=== PATIENT | male | born 1970 | race Caucasian/White ===

== ENCOUNTER 2016-12-10 19:10 | Emergency (ER) | payer OTHER ==
[~2016-12-10] VITALS: Ht 180.3 cm; Wt 104.0 kg
[~2016-12-10 19:10] MED LIST: AMBI10TA PO; AMLO10 PO; APIX5TAB PO; Aspirin Ec PO; HYDR-3115 PO; LABE200T2 PO; LIPI40TA PO
[2016-12-10 20:05] VITALS: BP 142/87; PULSE 120; RESP 16; TEMP 98.7; O2SAT 95
--- NOTE | 2016-12-10 20:39 | PD ---
HPI Chief Complaint: Psychiatric Symptoms Time Seen by Provider: 20:28 Travel History International Travel<30 days: No Contact w/Intl Traveler<30days: No Traveled to known affect area: No History of Present Illness HPI 46-year-old male that presents to the ED for evaluation of psychiatric illness. Patient was Benavides acted by police after apparently made suicidal statements to the police. Per patient she's been feeling depressed and anxious and his been abusing alcohol. Per patient he has a history of alcoholism and has been battling with this for some time. Per patient he has been sober in the past and was actually sober for about 30 days before he relapsed again about a week ago. He denies any chest pain or shortness of breath. No fevers chills or sweats. History of CVA but takes no blood thinners. Per patient he only takes an appropriate. He has been antidepressives in the past. He has not been on anything recently. He denies any homicidal ideation. Per patient he has no plan. Per patient he is wants help with his alcohol as well as his suicidal ideation. He states that he has a lot of stresses at home that exacerbate his symptoms and they've been progressively getting worse for the past couple weeks which caused him to go back to his alcohol. PFSH Past Medical History Arthritis: No Asthma: No Atrial Fibrillation: Yes Autoimmune Disease: No Blood Disorders: No Anxiety: Yes Depression: Yes Heart Rhythm Problems: No Cancer: No Cardiovascular Problems: Yes (AFIB) High Cholesterol: No Chemotherapy: No Chest Pain: No Congestive Heart Failure: No COPD: No Cerebrovascular Accident: No Diabetes: No Diminished Hearing: No Endocrine: No GERD: No Glaucoma: No Genitourinary: No Headaches: No Hepatitis: No Hiatal Hernia: No Hypertension: Yes Immune Disorder: No Kidney Stones: No Musculoskeletal: No Neurologic: No Psychiatric: Yes (alcoholism) Reproductive: No Respiratory: No Migraines: No Myocardial Infarction: No Radiation Therapy: No Renal Failure: No Seizures: No Sickle Cell Disease: No Sleep Apnea: No Thyroid Disease: No Ulcer: No Tetanus Vaccination: > 5 Years Influenza Vaccination: No Past Surgical History Abdominal Surgery: No AICD: No Appendectomy: No Arteriovenous Shunt: No Cardiac Surgery: No Cholecystectomy: No Ear Surgery: No Endocrine Surgery: No Eye Surgery: No Genitourinary Surgery: No Gynecologic Surgery: No Insulin Pump: No Joint Replacement: No Oral Surgery: No Pacemaker: No Thoracic Surgery: No Other Surgery: Yes (CYST REMOVAL) Social History Alcohol Use: Yes (5 BEERS PER DAYS) Tobacco Use: Yes (1 1/2 PACK PER DAY) Substance Use: No Allergies-Medications (Allergen,Severity, Reaction): Coded Allergies: *MDRO Multi-Drug Resistant Organism (Verified Adverse Reaction, Unknown, 12/10/16) MRSA PCR screen POSITIVE-03/02/16 Reported Meds & Prescriptions Reported Meds & Active Scripts Active Eliquis (Apixaban) 5 Mg Tab 5 Mg PO BID Labetalol (Labetalol HCl) 200 Mg Tab 200 Mg PO Q8HR Lipitor (Atorvastatin Calcium) 40 Mg Tab 40 Mg PO HS [Aspirin Ec] 325 MG Tabec 325 Mg PO DAILY Norvasc (Amlodipine Besylate) 10 Mg Tab 10 Mg PO DAILY Reported Vicodin Hp (Hydrocodone-Acetaminophen) 10-300 Tab 1 Tab PO Q4H PRN Ambien (Zolpidem Tartrate) 10 Mg Tab 10 Mg PO HS PRN Review of Systems Except as stated in HPI: all other systems reviewed are Neg Physical Exam Narrative GENERAL: SKIN: Warm and dry. HEAD: Atraumatic. Normocephalic. EYES: Pupils equal and round. No scleral icterus. No injection or drainage. ENT: No nasal bleeding or discharge. Mucous membranes pink and moist. Tongue is midline. No uvula deviation. NECK: Trachea midline. No JVD. CARDIOVASCULAR: Regular rate and rhythm. No murmurs, S3, S4. RESPIRATORY: No accessory muscle use. Clear to auscultation. Breath sounds equal bilaterally. GASTROINTESTINAL: Abdomen soft, non-tender, nondistended. Hepatic and splenic margins not palpable. MUSCULOSKELETAL: Extremities without clubbing, cyanosis, or edema. No obvious deformities. Full range of motion of the upper and lower extremities bilaterally. 2+ pulses bilaterally. NEUROLOGICAL: Awake and alert. No obvious cranial nerve deficits. Motor grossly within normal limits. Five out of 5 muscle strength in the arms and legs. Normal speech. PSYCHIATRIC: Appropriate mood and affect; insight and judgment normal. Data Data Last Documented VS Vital Signs Date Time Temp Pulse Resp B/P (MAP) Pulse Ox O2 Delivery O2 Flow Rate FiO2 12/10/16 20:07 16 12/10/16 20:05 98.7 120 142/87 (105) 95 Orders Orders Complete Blood Count With Diff (10/3/17 19:45) Comprehensive Metabolic Panel (12/10/16 19:45) Psych Screen (12/10/16 19:45) Drug Screen, Random Urine (12/10/16 19:45) Alcohol (Ethanol) (12/10/16 19:45) Salicylates (Aspirin) (12/10/16 19:45) Tylenol (Acetaminophen) (12/10/16 19:45) Electrocardiogram (12/10/16 ) Alcohol Withdrawal Asmt-Ciwa ONCE (12/10/16 21:59) Ondansetron Odt (Zofran Odt) (12/10/16 22:00) Acetaminophen (Tylenol) (12/10/16 22:00) Flumazenil Inj (Romazicon Inj) (12/10/16 22:00) Lorazepam (Ativan) (12/10/16 22:00) Lorazepam Inj (Ativan Inj) (12/10/16 22:00) Lorazepam (Ativan) (12/10/16 22:00) Lorazepam Inj (Ativan Inj) (12/10/16 22:00) Lorazepam Inj (Ativan Inj) (12/10/16 22:00) Lorazepam Inj (Ativan Inj) (12/10/16 22:00) Labs Laboratory Tests Test 12/10/16 20:40 White Blood Count 8.7 TH/MM3 Red Blood Count 4.82 MIL/MM3 Hemoglobin 16.1 GM/DL Hematocrit 47.5 % Mean Corpuscular Volume 98.7 FL Mean Corpuscular Hemoglobin 33.4 PG Mean Corpuscular Hemoglobin Concent 33.8 % Red Cell Distribution Width 15.1 % Platelet Count 180 TH/MM3 Mean Platelet Volume 7.2 FL Neutrophils (%) (Auto) 69.4 % Lymphocytes (%) (Auto) 23.0 % Monocytes (%) (Auto) 6.7 % Eosinophils (%) (Auto) 0.5 % Basophils (%) (Auto) 0.4 % Neutrophils # (Auto) 6.0 TH/MM3 Lymphocytes # (Auto) 2.0 TH/MM3 Monocytes # (Auto) 0.6 TH/MM3 Eosinophils # (Auto) 0.0 TH/MM3 Basophils # (Auto) 0.0 TH/MM3 CBC Comment DIFF FINAL Differential Comment Blood Urea Nitrogen 17 MG/DL Creatinine 1.06 MG/DL Random Glucose 68 MG/DL Total Protein 7.3 GM/DL Albumin 4.3 GM/DL Calcium Level 8.2 MG/DL Alkaline Phosphatase 80 U/L Aspartate Amino Transf (AST/SGOT) 39 U/L Alanine Aminotransferase (ALT/SGPT) 26 U/L Total Bilirubin 1.0 MG/DL Sodium Level 137 MEQ/L Potassium Level 3.4 MEQ/L Chloride Level 102 MEQ/L Carbon Dioxide Level 18.4 MEQ/L Anion Gap 17 MEQ/L Estimat Glomerular Filtration Rate 75 ML/MIN Salicylates Level 3.8 MG/DL Acetaminophen Level LESS THAN 2.0 MCG/ML Ethyl Alcohol Level 292 MG/DL [facility] Medical Decision Making Medical Screen Exam Complete: Yes Emergency Medical Condition: Yes Medical Record Reviewed: Yes Interpretation(s) CBC & BMP Diagram 12/10/16 20:40 Total Protein 7.3, Albumin 4.3, Calcium Level 8.2 L, Alkaline Phosphatase 80, Aspartate Amino Transf (AST/SGOT) 39 H, Alanine Aminotransferase (ALT/SGPT) 26, Total Bilirubin 1.0 tox positive for alcohol EKG shows sinus tachycardia. read by me and attending. Differential Diagnosis Depression versus suicidal ideation versus anxiety versus adjustment disorder versus mood disorder versus bipolar disorder versus schizophrenia versus paranoid disorder versus psychosis versus substance abuse versus alcohol abuse versus alcohol induced psychosis versus homicidality addition versus cutting versus personality disorder Narrative Course 46-year-old male that presents to the ED for violation of psychiatric illness. Patient was properly examined and was found to have no signs of acute medical distress. Patient does have a history of CVA but takes only lisinopril for blood pressure. Labs were drawn. Patient will be medically cleared. Okay to be seen by psych. Mental health screening was discussed with the patient. Diagnosis Primary Impression: Substance induced mood disorder Additional Impression: Alcohol abuse Cecilio Hernandes Dec 10, 2016 20:38
[2016-12-10 21:19] LABS: BASOPHIL % 0.4 % (0.0-2.0); EOSINOPHIL % 0.5 % (0.0-4.0); HEMATOCRIT 47.5 % (39.0-51.0); HEMO FLAGS DIFF FINAL; MEAN CELL VOLUME 98.7 FL (80.0-100.0); MEAN CORPUSCULAR HEMOGLOBIN 33.4 PG (27.0-34.0); MEAN CORPUSCULAR HGB CONC 33.8 % (32.0-36.0); MONO % 6.7 % (0.0-8.0); NEUT % 69.4 % (16.0-70.0); PLATELET COUNT 180 TH/MM3 (150-450); RED BLOOD COUNT 4.82 MIL/MM3 (4.50-5.90); RED CELL DISTRIBUTION WIDTH 15.1 % (11.6-17.2); WHITE BLOOD COUNT 8.7 TH/MM3 (4.0-11.0)
[2016-12-10 21:32] LABS: ANION GAP 17 MEQ/L (5-15)
[2016-12-10 21:52] LABS: ACETAMINOPHEN LESS THAN 2.0 MCG/ML (10.0-30.0); ALKALINE PHOSPHATASE 80 U/L (45-117); ALT (GPT) 26 U/L (12-78); AST (GOT) 39 U/L (15-37); BICARBONATE 18.4 MEQ/L (21.0-32.0); BLOOD UREA NITROGEN 17 MG/DL (7-18); CHLORIDE 102 MEQ/L (98-107); GLOMERULAR FILTRATION RATE 75 ML/MIN (>89); POTASSIUM 3.4 MEQ/L (3.5-5.1); SODIUM (NA) 137 MEQ/L (136-145)
[2016-12-10 21:54] LABS: ALCOHOL 292 MG/DL (0-5)
[2016-12-10] MEDS ORDERED: LORazepam 1 MG TAB PO PRN (22:00)
[2016-12-10] MEDS ORDERED: FLUMAZENIL 0.5 MG/5 ML VIAL IV PUSH PRN (22:00)
[2016-12-10] MEDS ORDERED: LORazepam 2 MG TAB PO PRN (22:00)
[2016-12-10] MEDS ORDERED: LORazepam 2 MG/ML VIAL IV PUSH PRN ×4 (22:00)
[2016-12-10] MEDS ORDERED: ONDANSETRON ODT 4 MG TAB PO PRN (22:00)
[2016-12-10] MEDS ORDERED: ACETAMINOPHEN 325 MG TAB PO PRN (22:00)
[2016-12-11 07:09] VITALS: BP 188/117; PULSE 104; RESP 16; TEMP 98.5; O2SAT 94
[2016-12-11] MEDS ORDERED: LORazepam 2 MG/ML VIAL IM ONE (07:30)
[2016-12-11] MEDS ORDERED: ONDANSETRON ODT 4 MG TAB PO ONE (07:30)
[2016-12-11 08:47] VITALS: BP 180/103; PULSE 108; RESP 17; O2SAT 94
--- NOTE | 2016-12-11 10:17 | EKG ---
Date Performed: 12/10/2016 Time Performed: 21:08:43 PTAGE: 46 years EKG: SINUS TACHYCARDIA PATTERN CONSISTENT WITH PULMONARY DISEASE INFERIOR MYOCARDIAL INFARCTION ABNORMAL ECG NO PREVIOUS TRACING DOCTOR: Keanu Waite Interpretating Date/Time 12/11/2016 10:15:51
[2016-12-11 15:05] VITALS: BP 162/102; PULSE 110; RESP 20; O2SAT 96
[2016-12-11] MEDS ORDERED: LORazepam 1 MG TAB PO ONE (17:15)
--- NOTE | 2016-12-11 17:21 | PD ---
History of Present Illness Chief Complaint: Psychiatric Symptoms Time Seen by Provider: 16:55 Travel History International Travel<30 Days: No Contact w/Intl Traveler<30days: No Known affected area: No Legal Status Legal Status: Benavides Act Benavides Act Signed By: [employer] [place] [employer] History of Present Illness: History of Present Illness 46-year-old male with no psychiatric history that presents to the ED under a Benavides act initiated by police. The Benavides act alleges that the patient told his mother that he wanted to and would not be alive by 6:00 pm. Patient was intoxicated when the police contacted him. He had 4 firearms in his possession but stated he would not use them. Patient did not make any attempts at harming self. Patient with BAl of 294 on arrival to ED. [place] [facility] he was allowed to sober up clinically in monitored environment with no behavioral concerns or suicidality reported by staff. The patient is alert, oriented, calm and clinically sober. he is seen with nurse Shavonne. He is not psychotic, not manic. States " I was drunk and said something to my brother. I have no intention of hurting myself". he denies any suicidal or homicidal ideation and states " I wouldn't do that to my mother". PFSH Past Medical History Arthritis: No Asthma: No Atrial Fibrillation: Yes Autoimmune Disease: No Blood Disorders: No Anxiety: Yes Depression: Yes Heart Rhythm Problems: No Cancer: No Cardiovascular Problems: Yes (AFIB) High Cholesterol: No Chemotherapy: No Chest Pain: No Congestive Heart Failure: No COPD: No Cerebrovascular Accident: No Diabetes: No Diminished Hearing: No Endocrine: No GERD: No Glaucoma: No Genitourinary: No Headaches: No Hepatitis: No Hiatal Hernia: No Hypertension: Yes Immune Disorder: No Kidney Stones: No Musculoskeletal: No Neurologic: No Psychiatric: Yes (alcoholism) Reproductive: No Respiratory: No Migraines: No Myocardial Infarction: No Radiation Therapy: No Renal Failure: No Seizures: No Sickle Cell Disease: No Sleep Apnea: No Thyroid Disease: No Ulcer: No Tetanus Vaccination: > 5 Years Influenza Vaccination: No Past Surgical History Abdominal Surgery: No AICD: No Appendectomy: No Arteriovenous Shunt: No Cardiac Surgery: No Cholecystectomy: No Ear Surgery: No Endocrine Surgery: No Eye Surgery: No Genitourinary Surgery: No Gynecologic Surgery: No Insulin Pump: No Joint Replacement: No Oral Surgery: No Pacemaker: No Thoracic Surgery: No Other Surgery: Yes (CYST REMOVAL) Psychiatric History Psychiatric History Hx Psychiatric Treatment: HX: DEPRESSION AND ANXIETY. Currently not tretaed History of Inpatient Treatment: No Guns or firearms in home: No Social History Single male. Lives with his mother. Moved to [place] 6 months ago. Unemployed. Hx Alcohol Use: Yes (5 BEERS PER DAYS) Hx Tobacco Use: Yes (1 1/2 PACK PER DAY) Hx Substance Use: Yes Substance Use Type: Alcohol Hx of Substance Use Treatment: Yes (Reports sober x 4 years. Relapsed 2 years ago and has been unable to maintian sobriety.) Family Psychiatric History Negative Allergies-Medications (Allergen,Severity, Reaction): Coded Allergies: *MDRO Multi-Drug Resistant Organism (Verified Adverse Reaction, Unknown, 12/10/16) MRSA PCR screen POSITIVE-03/02/16 Reported Meds & Prescriptions Reported Meds & Active Scripts Active Eliquis (Apixaban) 5 Mg Tab 5 Mg PO BID Labetalol (Labetalol HCl) 200 Mg Tab 200 Mg PO Q8HR Lipitor (Atorvastatin Calcium) 40 Mg Tab 40 Mg PO HS [Aspirin Ec] 325 MG Tabec 325 Mg PO DAILY Norvasc (Amlodipine Besylate) 10 Mg Tab 10 Mg PO DAILY Reported Vicodin Hp (Hydrocodone-Acetaminophen) 10-300 Tab 1 Tab PO Q4H PRN Ambien (Zolpidem Tartrate) 10 Mg Tab 10 Mg PO HS PRN Mental Status Examination Appearance: Appropriate Speech: Unremarkable Orientation: x3 Memory: Unremarkable Thought Content: Goal directed Thought Associations: Intact Language: Other (logical ) Fund of Knowledge: Average Hallucination Type: None Attention and Concentration: Good Suicidal Ideation: No Previous Suicide Attempts: No Homicidal Ideation: No Previous Homicide Attempts: No Insight: Adequate Judgment: Adequate Affect: Good Mood: Appropriate Motor Activity: Normal gait MDM Medical Decision Making Medical Record Reviewed: Yes Assessment/Plan 46-year-old male with no psychiatric history that presents to the ED under a Benavides act initiated by police. The Benavides act alleges that the patient told his mother that he wanted to and would not be alive by 6:00 pm. Patient was intoxicated when the police contacted him. He had 4 firearms in his possession but stated he would not use them. Patient did not make any attempts at harming self. Once clinically sober the patient denies any significant symptoms and does not present any objective signs of depression. He denies any suicidal ideation, intent or plan. He has adequate protective factors. B A is lifted as he does not present any unstable mental illness as per benavides act. Psychiatrically clear for discharge. He will begin 90 meetings in 90 days. Orders Orders Complete Blood Count With Diff (12/10/16 19:45) Comprehensive Metabolic Panel (12/10/16 19:45) Psych Screen (12/10/16 19:45) Drug Screen, Random Urine (12/10/16 19:45) Alcohol (Ethanol) (12/10/16 19:45) Salicylates (Aspirin) (12/10/16 19:45) Tylenol (Acetaminophen) (12/10/16 19:45) Electrocardiogram (12/10/16 ) Alcohol Withdrawal Asmt-Ciwa ONCE (12/10/16 21:59) Ondansetron Odt (Zofran Odt) (12/10/16 22:00) Acetaminophen (Tylenol) (12/10/16 22:00) Flumazenil Inj (Romazicon Inj) (12/10/16 22:00) Lorazepam (Ativan) (12/10/16 22:00) Lorazepam Inj (Ativan Inj) (12/10/16 22:00) Lorazepam (Ativan) (12/10/16 22:00) Lorazepam Inj (Ativan Inj) (12/10/16 22:00) Lorazepam Inj (Ativan Inj) (12/10/16 22:00) Lorazepam Inj (Ativan Inj) (12/10/16 22:00) Ondansetron Odt (Zofran Odt) (12/11/16 07:30) Lorazepam Inj (Ativan Inj) (12/11/16 07:30) Diet Regular Basic (12/11/16 Breakfast) Diet Regular Basic (12/11/16 Dinner) Lorazepam (Ativan) (12/11/16 17:15) Results Vital Signs Date Time Temp Pulse Resp B/P (MAP) Pulse Ox O2 Delivery O2 Flow Rate FiO2 12/11/16 15:05 110 20 162/102 (122) 96 Room Air 12/11/16 08:47 108 17 180/103 (128) 94 Room Air 12/11/16 07:09 98.5 104 16 188/117 (140) 94 Room Air 12/10/16 20:07 16 12/10/16 20:05 98.7 120 16 142/87 (105) 95 Laboratory Tests Test 12/10/16 20:40 12/10/16 21:50 White Blood Count 8.7 Red Blood Count 4.82 Hemoglobin 16.1 Hematocrit 47.5 Mean Corpuscular Volume 98.7 Mean Corpuscular Hemoglobin 33.4 Mean Corpuscular Hemoglobin Concent 33.8 Red Cell Distribution Width 15.1 Platelet Count 180 Mean Platelet Volume 7.2 Neutrophils (%) (Auto) 69.4 Lymphocytes (%) (Auto) 23.0 Monocytes (%) (Auto) 6.7 Eosinophils (%) (Auto) 0.5 Basophils (%) (Auto) 0.4 Neutrophils # (Auto) 6.0 Lymphocytes # (Auto) 2.0 Monocytes # (Auto) 0.6 Eosinophils # (Auto) 0.0 Basophils # (Auto) 0.0 CBC Comment DIFF FINAL Differential Comment Blood Urea Nitrogen 17 Creatinine 1.06 Random Glucose 68 Total Protein 7.3 Albumin 4.3 Calcium Level 8.2 Alkaline Phosphatase 80 Aspartate Amino Transf (AST/SGOT) 39 Alanine Aminotransferase (ALT/SGPT) 26 Total Bilirubin 1.0 Sodium Level 137 Potassium Level 3.4 Chloride Level 102 Carbon Dioxide Level 18.4 Anion Gap 17 Estimat Glomerular Filtration Rate 75 Salicylates Level 3.8 Acetaminophen Level LESS THAN 2.0 Ethyl Alcohol Level 292 Urine Opiates Screen NEG Urine Barbiturates Screen NEG Urine Amphetamines Screen NEG Urine Benzodiazepines Screen NEG Urine Cocaine Screen NEG Urine Cannabinoids Screen NEG Diagnosis Primary Impression: Alcohol dependence with acute alcoholic intoxication Psychiatrically Cleared: Yes Med/ Other Pt Specific Info: No Meds Exist/No RX given Disposition: 01 DISCHARGE HOME Condition: Stable Problem Qualifiers Primary Impression: Alcohol dependence with acute alcoholic intoxication Qualified Codes: F10.220 - Alcohol dependence with intoxication, uncomplicated Hattie Wei Purvi Soto [facility] Dec 11, 2016 17:21
--- NOTE | 2016-12-11 17:51 | PD ---
Physical Exam Time Seen by Provider: 17:49 PERRY Judge has evaluated the patient, lifted Benavides act, and the patient will be discharged home with follow-up at [facility]. Data Data Last Documented VS Vital Signs Date Time Temp Pulse Resp B/P (MAP) Pulse Ox O2 Delivery O2 Flow Rate FiO2 12/11/16 15:05 110 20 162/102 (122) 96 Room Air 12/11/16 07:09 98.5 Orders Orders Complete Blood Count With Diff (12/10/16 19:45) Comprehensive Metabolic Panel (12/10/16 19:45) Psych Screen (12/10/16 19:45) Drug Screen, Random Urine (12/10/16 19:45) Alcohol (Ethanol) (12/10/16 19:45) Salicylates (Aspirin) (12/10/16 19:45) Tylenol (Acetaminophen) (12/10/16 19:45) Electrocardiogram (12/10/16 ) Alcohol Withdrawal Asmt-Ciwa ONCE (12/10/16 21:59) Ondansetron Odt (Zofran Odt) (12/10/16 22:00) Acetaminophen (Tylenol) (12/10/16 22:00) Flumazenil Inj (Romazicon Inj) (12/10/16 22:00) Lorazepam (Ativan) (12/10/16 22:00) Lorazepam Inj (Ativan Inj) (12/10/16 22:00) Lorazepam (Ativan) (12/10/16 22:00) Lorazepam Inj (Ativan Inj) (12/10/16 22:00) Lorazepam Inj (Ativan Inj) (12/10/16 22:00) Lorazepam Inj (Ativan Inj) (12/10/16 22:00) Ondansetron Odt (Zofran Odt) (12/11/16 07:30) Lorazepam Inj (Ativan Inj) (12/11/16 07:30) Diet Regular Basic (12/11/16 Breakfast) Diet Regular Basic (12/11/16 Dinner) Lorazepam (Ativan) (12/11/16 17:15) Labs Laboratory Tests Test 12/10/16 20:40 12/10/16 21:50 White Blood Count 8.7 TH/MM3 Red Blood Count 4.82 MIL/MM3 Hemoglobin 16.1 GM/DL Hematocrit 47.5 % Mean Corpuscular Volume 98.7 FL Mean Corpuscular Hemoglobin 33.4 PG Mean Corpuscular Hemoglobin Concent 33.8 % Red Cell Distribution Width 15.1 % Platelet Count 180 TH/MM3 Mean Platelet Volume 7.2 FL Neutrophils (%) (Auto) 69.4 % Lymphocytes (%) (Auto) 23.0 % Monocytes (%) (Auto) 6.7 % Eosinophils (%) (Auto) 0.5 % Basophils (%) (Auto) 0.4 % Neutrophils # (Auto) 6.0 TH/MM3 Lymphocytes # (Auto) 2.0 TH/MM3 Monocytes # (Auto) 0.6 TH/MM3 Eosinophils # (Auto) 0.0 TH/MM3 Basophils # (Auto) 0.0 TH/MM3 CBC Comment DIFF FINAL Differential Comment Blood Urea Nitrogen 17 MG/DL Creatinine 1.06 MG/DL Random Glucose 68 MG/DL Total Protein 7.3 GM/DL Albumin 4.3 GM/DL Calcium Level 8.2 MG/DL Alkaline Phosphatase 80 U/L Aspartate Amino Transf (AST/SGOT) 39 U/L Alanine Aminotransferase (ALT/SGPT) 26 U/L Total Bilirubin 1.0 MG/DL Sodium Level 137 MEQ/L Potassium Level 3.4 MEQ/L Chloride Level 102 MEQ/L Carbon Dioxide Level 18.4 MEQ/L Anion Gap 17 MEQ/L Estimat Glomerular Filtration Rate 75 ML/MIN Salicylates Level 3.8 MG/DL Acetaminophen Level LESS THAN 2.0 MCG/ML Ethyl Alcohol Level 292 MG/DL Urine Opiates Screen NEG Urine Barbiturates Screen NEG Urine Amphetamines Screen NEG Urine Benzodiazepines Screen NEG Urine Cocaine Screen NEG Urine Cannabinoids Screen NEG MDM Supervised Visit with PATIENCE: No Narrative Course PERRY Kuhn has evaluated the patient, lifted Benavides act, and the patient will be discharged home with follow-up at [facility]. Patient contracts safety. Denies suicidal or homicidal ideations. Patient will be provided community resource packet to [facility] for follow-up. Has friends and family for support. Patient is medically cleared for discharge. Diagnosis Primary Impression: Alcohol dependence with acute alcoholic intoxication Qualified Codes: F10.220 - Alcohol dependence with intoxication, uncomplicated Referrals: [facility] (Out patient) [facility] Primary Care Physician Psychiatrist [facility] Patient Instructions: Abuse of Alcohol (ED), Alcohol Intoxication (ED), General Instructions Additional Instruction: Contract safety to your self and others Stop Drinking alcohol Follow-up with psychiatry Follow-up with primary care provider Follow-up with Ford Rae/[facility] Return to the emergency department immediately with worsening of symptoms Med/Other Pt SpecificInfo: No Meds Exist/No RX given Disposition: 01 DISCHARGE HOME Condition: Stable Yuridia Enciso [employer] Dec 11, 2016 17:51
[2016-12-11 17:58] VITALS: BP 154/90; TEMP 98.3
== END 2016-12-11 18:25 | disposition home or self-care (01) ==
LOC: NEPD 19:10 → NEPJ 12-11 18:25
DX: F10.220 Alcohol dependence with intoxication, uncomplicated (principal); F17.200 Nicotine dependence, unspecified, uncomplicated; I10 Essential (primary) hypertension; I48.91 Unspecified atrial fibrillation; Y90.8 Blood alcohol level of 240 mg/100 ml or more; Z79.01 Long term (current) use of anticoagulants; Z79.899 Other long term (current) drug therapy
CPT/HCPCS: 80053; 80307; 85025; 93005; 96372; 99284; J2060

== ENCOUNTER 2017-07-05 15:19 | Emergency (ER) | payer OTHER ==
[~2017-07-05] VITALS: Ht 180.3 cm; Wt 105.0 kg
[2017-07-05 15:27] VITALS: BP 175/109; PULSE 86; RESP 18; TEMP 98.6; O2SAT 98
[2017-07-05 15:32] VITALS: BP 159/109; PULSE 87; RESP 18; O2SAT 96
[2017-07-05 15:38] VITALS: O2SAT 98
--- NOTE | 2017-07-05 15:42 | PD ---
HPI Chief Complaint: Fall Time Seen by Provider: 15:32 Travel History International Travel<30 days: No Contact w/Intl Traveler<30days: No Traveled to known affect area: No History of Present Illness HPI 47-year-old male presents emergency department via [facility] after a fall that occurred at [facility] just prior to arrival. EVAC states that patient had a mechanical fall from one step landing on the concrete resulting in his injury. EVAC states that patient had repetitive questioning and did not remember the incident for approximately 30-45 minutes. Patient does remember the incident at this time. States that he fell resulting in this head injury. States he had multiple drinks while at [facility] which likely resulted in this fall. Patient is concerned because he was due home several hours ago. She denies any pain currently. He is rather emotional upon evaluation and reluctant to answer my questions. He has a history of paroxysmal atrial fibrillation and hypertension. Patient does not take any blood thinners. He says that he has relapsed with his alcohol consumption and is emotional when he explains the situation. Says he drinks "1/5 of alcohol" daily. He denies history of withdrawal. PFSH Past Medical History Arthritis: No Asthma: No Atrial Fibrillation: Yes Autoimmune Disease: No Blood Disorders: No Anxiety: Yes Depression: Yes Heart Rhythm Problems: No Cancer: No Cardiovascular Problems: Yes (AFIB) High Cholesterol: No Chemotherapy: No Chest Pain: No Congestive Heart Failure: No COPD: No Cerebrovascular Accident: No Diabetes: No Diminished Hearing: No Endocrine: No GERD: No Glaucoma: No Genitourinary: No Headaches: No Hepatitis: No Hiatal Hernia: No Hypertension: Yes Immune Disorder: No Kidney Stones: No Musculoskeletal: No Neurologic: No Psychiatric: Yes (alcoholism) Reproductive: No Respiratory: No Migraines: No Myocardial Infarction: No Radiation Therapy: No Renal Failure: No Seizures: No Sickle Cell Disease: No Sleep Apnea: No Thyroid Disease: No Ulcer: No ?: Not Past Surgical History Abdominal Surgery: No AICD: No Appendectomy: No Arteriovenous Shunt: No Cardiac Surgery: No Cholecystectomy: No Ear Surgery: No Endocrine Surgery: No Eye Surgery: No Genitourinary Surgery: No Gynecologic Surgery: No Insulin Pump: No Joint Replacement: No Oral Surgery: No Pacemaker: No Thoracic Surgery: No Other Surgery: Yes (CYST REMOVAL) Social History Alcohol Use: Yes (5 BEERS PER DAYS) Tobacco Use: Yes (1 1/2 PACK PER DAY) Substance Use: Yes Allergies-Medications (Allergen,Severity, Reaction): Coded Allergies: *MDRO Multi-Drug Resistant Organism (Verified Adverse Reaction, Unknown, ) 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 HEAD: Normocephalic. Laceration to the right forehead 4 cm EYES: Pupils equal and round. No scleral icterus. No injection or drainage. EOMI ENT: No nasal bleeding or discharge. Mucous membranes pink and moist. NECK: Trachea midline. No JVD. In c-collar CARDIOVASCULAR: Regular rate and rhythm. No murmur appreciated. RESPIRATORY: No accessory muscle use. Clear to auscultation. Breath sounds equal bilaterally. GASTROINTESTINAL: Abdomen soft, non-tender, nondistended. MUSCULOSKELETAL: No obvious deformities. No clubbing. No cyanosis. No edema. Pelvis stable BACK: No CVA tenderness. No rash. No point tenderness on palpation of the spine. NEUROLOGICAL: Awake and alert. No obvious cranial nerve deficits. Motor grossly within normal limits. Normal speech. PSYCHIATRIC: Appropriate mood and affect; insight and judgment normal. Data Data Last Documented VS Vital Signs Date Time Temp Pulse Resp B/P (MAP) Pulse Ox O2 Delivery O2 Flow Rate FiO2 07/05/17 18:07 100 07/05/17 15:38 Room Air 07/05/17 15:32 82 20 07/05/17 15:27 98.6 Orders Orders Complete Blood Count With Diff (07/05/17 15:33) Prothrombin Time / Inr (Pt) (07/05/17 15:33) Act Partial Throm Time (Ptt) (07/05/17 15:33) Ct Brain W/O Iv Contrast(Rout) (07/05/17 15:33) Ct Cerv Spine W/O Contrast (07/05/17 15:33) Ct Facial Bones W/O Iv Cont (07/05/17 15:33) Iv Access Insert/Monitor (07/05/17 15:33) Ecg Monitoring (07/05/17 15:33) Oximetry (07/05/17 15:33) Oxygen Administration (07/05/17 15:33) Remove Backboard (07/05/17 15:33) Sodium Chloride 0.9% Flush (Ns Flush) (07/05/17 15:45) Comprehensive Metabolic Panel (07/05/17 15:33) Lidocai-Epi 2%-1:100,000 Inj (Xylocaine- (07/05/17 15:45) Chest, Single Ap (07/05/17 ) Lidocai-Epi 2%-1:100,000 Inj (Xylocaine- (07/05/17 16:00) Wound Care (07/05/17 17:47) Ed Discharge Order (07/05/17 18:00) Labs Laboratory Tests Test 07/05/17 16:00 White Blood Count 9.3 TH/MM3 Red Blood Count 4.56 MIL/MM3 Hemoglobin 14.9 GM/DL Hematocrit 43.4 % Mean Corpuscular Volume 95.3 FL Mean Corpuscular Hemoglobin 32.6 PG Mean Corpuscular Hemoglobin Concent 34.3 % Red Cell Distribution Width 15.4 % Platelet Count 213 TH/MM3 Mean Platelet Volume 7.7 FL Neutrophils (%) (Auto) 55.2 % Lymphocytes (%) (Auto) 28.5 % Monocytes (%) (Auto) 13.8 % Eosinophils (%) (Auto) 1.5 % Basophils (%) (Auto) 1.0 % Neutrophils # (Auto) 5.1 TH/MM3 Lymphocytes # (Auto) 2.7 TH/MM3 Monocytes # (Auto) 1.3 TH/MM3 Eosinophils # (Auto) 0.1 TH/MM3 Basophils # (Auto) 0.1 TH/MM3 CBC Comment AUTO DIFF Differential Comment AUTO DIFF CONFIRMED Prothrombin Time 10.6 SEC Prothromb Time International Ratio 1.0 RATIO Activated Partial Thromboplast Time 24.1 SEC Blood Urea Nitrogen 12 MG/DL Creatinine 0.92 MG/DL Random Glucose 101 MG/DL Total Protein 7.1 GM/DL Albumin 3.7 GM/DL Calcium Level 8.3 MG/DL Alkaline Phosphatase 88 U/L Aspartate Amino Transf (AST/SGOT) 26 U/L Alanine Aminotransferase (ALT/SGPT) 29 U/L Total Bilirubin 0.3 MG/DL Sodium Level 140 MEQ/L Potassium Level 3.7 MEQ/L Chloride Level 105 MEQ/L Carbon Dioxide Level 23.0 MEQ/L Anion Gap 12 MEQ/L Estimat Glomerular Filtration Rate 88 ML/MIN MDM Medical Decision Making Medical Screen Exam Complete: Yes Emergency Medical Condition: Yes Differential Diagnosis Forehead laceration, ICH, concussion, malingering, alcohol intoxication Narrative Course 47 year male presents emergency room for evaluation of head injury after a mechanical fall that occurred today. Labs and imaging studies ordered. Last Impressions Maxillofacial CT 07/05/17 1533 Signed Impressions: Service Date/Time: Wednesday, July 05, 2017 16:27 - CONCLUSION: 1. No fracture. 2. Right sided laceration. 3. Soft tissue nodule in her wall of the right maxillary sinus. Direct inspection may be warranted. Roman Dawson MD Head CT 07/05/17 1533 Signed Impressions: Service Date/Time: Wednesday, July 05, 2017 16:27 - CONCLUSION: No acute intracranial disease. Roman Dawson MD Cervical Spine CT 07/05/17 1533 Signed Impressions: Service Date/Time: Wednesday, July 05, 2017 16:27 - CONCLUSION: 1. No acute bony abnormality seen. 2. Degenerative change. Christian Peterson MD Chest X-Ray 07/05/17 0000 Signed Impressions: Service Date/Time: Wednesday, July 05, 2017 15:52 - CONCLUSION: No acute disease. Roman Dawson MD CBC & BMP Diagram 07/05/17 16:00 Total Protein 7.1, Albumin 3.7, Calcium Level 8.3 L, Alkaline Phosphatase 88, Aspartate Amino Transf (AST/SGOT) 26, Alanine Aminotransferase (ALT/SGPT) 29, Total Bilirubin 0.3 Laceration repair completed. Throughout the emergency department visit today, patient was rather anxious to leave. States that he was "due home hours ago" and was concerned about the status of his home life. He was able to recall the actions of today's visit after further discussion. He was less repetitive and less anxious through his time in the ED. He ambulated to the restroom multiple times without staggering or falls. Patient demonstrated appropriate judgment and reasoning. He states understanding and will comply with instructions given today. Consider follow up with an investigative research specialist regarding the finding on the CT. Patient be discharged with instructions to follow-up with primary care physician within 1 week. Advised to return for worsening or persistent symptoms. Procedures Procedure Narrative LACERATION LOCATION: Right forehead LENGTH: 4 cm NUMBER OF STITCHES/SLADE: 12 REPAIR: The area of the laceration was prepped with Betadine and sterilely draped. The laceration was infiltrated with 2% lidocaine with epinephrine. The wound was copiously irrigated and explored without evidence of foreign body, tendon injury or neurovascular injury. The wound was closed using 5-0 Prolene, 4-0 Vicryl. This was a 2 layer repair. A sterile dressing was applied. The patient was advised to keep the dressing clean and dry. Patient tolerated the procedure well. Diagnosis Primary Impression: Forehead laceration Qualified Codes: S01.81XA - Laceration without foreign body of other part of head, initial encounter Additional Impressions: Accident due to mechanical fall without injury Qualified Codes: W19.XXXA - Unspecified fall, initial encounter Concussion Qualified Codes: S06.0X0A - Concussion without loss of consciousness, initial encounter Referrals: Ear / Nose / Throat Specialist Primary Care Physician Departure Forms: Tests/Procedures, Work Release Enter return to work date: Jul 05, 2017 Special Instructions: Avoid excessive activity until symptoms resolve, up to 1-2 weeks. Additional Instructions: Follow-up the primary care physician within 1 week. If you were symptoms worsen return to the emergency department. Suture removal in 5-7 days. Keep the wound clean and dry for 24 hours. After 24 hours you may wash but dry thoroughly and keep clean and dry. If you do develop increased headache, personality changes, blurred vision return to emerge department. Scripts No Active Prescriptions or Reported Meds Disposition: 01 DISCHARGE HOME Condition: Stable Karla Douglas Jul 05, 2017 15:42
[2017-07-05] MEDS ORDERED: LIDOCAINE 2%/EPINEPHrine 1:100,000 30ML MDV INFIL ONE (15:45)
[2017-07-05] MEDS: SODIUM CHLORIDE 0.9% FLUSH 10 ML FLUSH IVF PRN ×2 (15:55→16:22)
[2017-07-05] MEDS ORDERED: LIDOCAINE 2%/EPINEPHrine 1:100,000 50ML MDV NERV BLOCK ONE (16:00)
--- NOTE | 2017-07-05 16:11 | RADRPT ---
EXAM DATE/TIME: 07/05/2017 15:52 [facility] COMPARISON: No previous studies available for comparison. INDICATIONS : Shortness of breath status post fall. MEDICAL HISTORY : None. SURGICAL HISTORY : None. ENCOUNTER: Initial ACUITY: 1 day PAIN SCORE: 0/10 LOCATION: chest FINDINGS: A single view of the chest demonstrates the lungs to be symmetrically aerated without evidence of mas s, infiltrate or effusion. The cardiomediastinal contours are unremarkable. Osseous structures are intact. CONCLUSION: No acute disease. Roman Dawson MD on July 05, 2017 at 16:08 Board Certified Radiologist. This report was verified electronically.
[2017-07-05 16:22] LABS: AUTOMATED NEUTROPHIL # 5.1 TH/MM3 (1.8-7.7); BASOPHIL # 0.1 TH/MM3 (0-0.2); EOSINOPHIL # 0.1 TH/MM3 (0-0.4); EOSINOPHIL % 1.5 % (0.0-4.0); HEMATOCRIT 43.4 % (39.0-51.0); HEMOGLOBIN 14.9 GM/DL (13.0-17.0); LYMPH % 28.5 % (9.0-44.0); LYMPHOCYTE # 2.7 TH/MM3 (1.0-4.8); MEAN CELL VOLUME 95.3 FL (80.0-100.0); MEAN CORPUSCULAR HEMOGLOBIN 32.6 PG (27.0-34.0); MEAN CORPUSCULAR HGB CONC 34.3 % (32.0-36.0); MEAN PLATELET VOLUME 7.7 FL (7.0-11.0); MONO % 13.8 % (0.0-8.0); MONOCYTE # 1.3 TH/MM3 (0-0.9); NEUT % 55.2 % (16.0-70.0); PLATELET COUNT 213 TH/MM3 (150-450); RED BLOOD COUNT 4.56 MIL/MM3 (4.50-5.90); RED CELL DISTRIBUTION WIDTH 15.4 % (11.6-17.2); WHITE BLOOD COUNT 9.3 TH/MM3 (4.0-11.0)
[2017-07-05 16:33] LABS: PROTHROMBIN TIME - PATIENT 10.6 SEC (9.8-11.6)
[2017-07-05 16:43] LABS: ALBUMIN 3.7 GM/DL (3.4-5.0); AST (GOT) 26 U/L (15-37); BLOOD UREA NITROGEN 12 MG/DL (7-18); CALCIUM 8.3 MG/DL (8.5-10.1); CHLORIDE 105 MEQ/L (98-107); CREATININE 0.92 MG/DL (0.60-1.30); GLOMERULAR FILTRATION RATE 88 ML/MIN (>89); GLUCOSE,RANDOM 101 MG/DL (74-106); SODIUM (NA) 140 MEQ/L (136-145)
[2017-07-05 16:48] LABS: ALKALINE PHOSPHATASE 88 U/L (45-117); ALT (GPT) 29 U/L (12-78); TOTAL BILIRUBIN ADULT 0.3 MG/DL (0.2-1.0); TOTAL PROTEIN 7.1 GM/DL (6.4-8.2)
--- NOTE | 2017-07-05 16:56 | RADRPT ---
EXAM DATE/TIME: 07/05/2017 16:27 [facility] COMPARISON: CT BRAIN W/O CONTRAST, March 03, 2016, 15:49. INDICATIONS : Fall hit face on floor,laceration frontal area RADIATION DOSE: 56.35 CTDIvol (mGy) MEDICAL HISTORY : Cardiovascular disease. Hypertension. SURGICAL HISTORY : None. ENCOUNTER: Initial ACUITY: 1 day PAIN SCALE: 6/10 LOCATION: cranial TECHNIQUE: Multiple contiguous axial images were obtained of the head. Using automated exposure control and adj ustment of the mA and/or kV according to patient size, radiation dose was kept as low as reasonably a chievable to obtain optimal diagnostic quality images. DICOM format image data is available electro nically for review and comparison. FINDINGS: CEREBRUM: The ventricles are normal for age. No evidence of midline shift, mass lesion, hemorrhage or acute in farction. No extra-axial fluid collections are seen. POSTERIOR FOSSA: The cerebellum and brainstem are intact. The 4th ventricle is midline. The cerebellopontine angle i s unremarkable. EXTRACRANIAL: The visualized portion of the orbits is intact. SKULL: The calvaria is intact. No evidence of skull fracture. CONCLUSION: No acute intracranial disease. Roman Dawson MD on July 05, 2017 at 16:52 Board Certified Radiologist. This report was verified electronically.
--- NOTE | 2017-07-05 17:06 | RADRPT ---
EXAM DATE/TIME: 07/05/2017 16:27 [facility] COMPARISON: No previous studies available for comparison. INDICATIONS : Fall hit face on floor,laceration frontal area RADIATION DOSE: 23.67 CTDIvol (mGy) MEDICAL HISTORY : Cardiovascular disease. Hypertension. SURGICAL HISTORY : None. ENCOUNTER: Initial ACUITY: 1 day PAIN SCALE: 6/10 LOCATION: neck TECHNIQUE: Volumetric scanning of the cervical spine was performed. Multiplanar reconstructions in the sagittal, coronal and oblique axial planes were performed. Using automated exposure control and adjustment o f the mA and/or kV according to patient size, radiation dose was kept as low as reasonably achievable to obtain optimal diagnostic quality images. DICOM format image data is available electronically f or review and comparison. FINDINGS: VERTEBRAE: Normal vertebral body height. ALIGNMENT: No evidence of subluxation. C2-C3: The bony spinal canal is normal in size. No evidence of disc bulge or herniation. The neural forami na are bilaterally patent. C3-C4: The bony spinal canal is normal in size. No evidence of disc bulge or herniation. There is minimal posterior osteophytic ridging at the right lateral recess level. The neural foramina are bilaterally patent. C4-C5: There is mild diffuse disc bulge causing a mild impression of the thecal sac. The bony spinal canal i s normal in size. The neural foramina are bilaterally patent. C5-C6: The disc demonstrates decreased height and a vacuum phenomenon. Minimal bulging and osteophytic ridgi ng is present. Significant stenosis is not seen. There is uncovertebral hypertrophy. The bony spinal canal is normal in size. The neural foramina are bilaterally patent. C6-C7: The bony spinal canal is normal in size. No evidence of disc bulge or herniation. The neural forami na are bilaterally patent. Mild anterior marginal osteophytes are present. Minimal uncovertebral hype rtrophy is present. C7-T1: The bony spinal canal is normal in size. No evidence of disc bulge or herniation. The neural forami na are bilaterally patent. CONCLUSION: 1. No acute bony abnormality seen. 2. Degenerative change. Christian Peterson MD on July 05, 2017 at 16:59 Board Certified Radiologist. This report was verified electronically.
--- NOTE | 2017-07-05 17:10 | RADRPT ---
EXAM DATE/TIME: 07/05/2017 16:27 [facility] COMPARISON: CT BRAIN W/O CONTRAST, March 03, 2016, 15:49. INDICATIONS : Fall hit face on floor,laceration on frontal area RADIATION DOSE: 21.96 CTDIvol (mGy) MEDICAL HISTORY : Cardiovascular disease. Hypertension. SURGICAL HISTORY : Non-responsive. ENCOUNTER: Initial ACUITY: 1 day PAIN SCORE: 6/10 LOCATION: facial TECHNIQUE: Volumetric scanning of the facial bones was performed. Using automated exposure control and adjustme nt of the mA and/or kV according to patient size, radiation dose was kept as low as reasonably achiev able to obtain optimal diagnostic quality images. DICOM format image data is available electronicall y for review and comparison. FINDINGS: ORBITS: The orbital and infraorbital osseous structures are intact. The retroconal structures have a normal configuration. No radiopaque foreign bodies are seen. NASAL BONE: The nasal bone and maxillary spine are intact ZYGOMATIC ARCHES: Symmetric without evidence of fracture. SINUSES: Polypoid lesion medial upper wall right maxillary sinus measures approximately 1.3 x 1.2 cm. Trace o f fluid in the right maxillary sinus. NASAL CAVITY: The nasal septum is intact and midline. The lacrimal ducts are intact. SOFT TISSUES: No radiopaque foreign bodies seen. Right facial soft-tissue swelling/laceration is seen. INTRACRANIAL: No intracranial air seen. CRIBIFORM PLATE: Grossly intact. CONCLUSION: 1. No fracture. 2. Right sided laceration. 3. Soft tissue nodule in her wall of the right maxillary sinus. Direct inspection may be warranted. Roman Dawson MD on July 05, 2017 at 17:01 Board Certified Radiologist. This report was verified electronically.
== END 2017-07-05 18:07 | disposition home or self-care (01) ==
LOC: NEPC 15:19
DX: S01.81XA Laceration without foreign body of other part of head, initial encounter (principal); S06.0X0A Concussion without loss of consciousness, initial encounter; F17.200 Nicotine dependence, unspecified, uncomplicated; I48.0 Paroxysmal atrial fibrillation; W10.9XXA Fall (on) (from) unspecified stairs and steps, initial encounter
CPT/HCPCS: 12052; 70450; 70486; 71045; 72125; 80053; 85025; 85610; 85730

== ENCOUNTER 2017-10-29 06:10 | Observation (INO) ==
[2017-10-29] MEDS ORDERED: Sod Chloride 0.9% Inj 1,000 ML IV.CONT SCH (07:00)
[2017-10-29] MEDS ORDERED: Thiamine Inj 100 MG in Sodium Chlor 0.9% Inj 100 ML IV.SIG ONE (07:03)
--- NOTE | 2017-10-29 07:06 | ED ---
HPI General Chief complaint: Syncope Stated complaint: Headache Time Seen by Provider: 10/29/17 06:40 Source: patient Limitations: no limitations History of Present Illness HPI narrative: The patient is a 47 year old male who presents to the [facility] emergency department with a history of developing a headache and ataxia at approximately 5:20 AM this morning. The patient reports that he got up to go to work this morning and felt well, however he then bent over to tie his shoes and had onset of headache. He reports that he felt like he overdid it, therefore he sat down to rest. He reports that when he stood up to again walk across the room he felt like he was on balance. He reports that it felt like he was intoxicated and could not walk straight. He denies having any vision changes associated with this. He denies having any one-sided weakness, slurred speech, facial droop, difficulty with word finding ability, or vertigo. The patient reports a history of atrial fibrillation and hypertension. He denies taking any antihypertensive medication or any blood thinner. He denies taking aspirin daily. When asked why, the patient reports that he does not have a primary care physician currently. The patient additionally reports that he is an alcoholic. He reports that he drinks 1/5 of rum daily. The patient reports that he last had a drink of rum at 9 PM last night. On review of systems otherwise, the patient denies having any known recent fevers, cough or congestion, neck pain, chest pain, shortness of breath, abdominal pain, vomiting , diarrhea, or urinary symptoms. Related Data Home Medications Medication Instructions Recorded Confirmed No Known Home Medications 10/29/17 10/29/17 Allergies Allergy/AdvReac Type Severity Reaction Status Date / Time *MDRO Multi-Drug Resistant AdvReac Unknown Fever Uncoded 10/29/17 06:22 Organism [facility] Medical History Medical History A-fib (Acute) ETOHism (Acute) Hypertension (Acute) Stroke (Acute) Surgical History Surgical History H/O hernia repair (Acute) Social History Social History Substance History: Active Abuse Second Hand Smoke Exposure: No Smoking Status: Current every day smoker Tobacco Type: Cigarettes Packs Per Day: 1 Cigarettes Per Day: 20.0 How Often Do You Have a Drink Containing Alcohol: 4 or more times a week Recent Travel in [facility] within the Last 8 Weeks: No Recent Out of Country Travel within the Last 8 Weeks: No Immunization History Tetanus Immunization: <5 Years Hx Influenza Vaccine This Season: No Exam Const General: cooperative, no acute distress and well developed Nutritional Appearance: well nourished Orientation: alert, awake and oriented x3 HENMT Head: normocephalic and atraumatic Nose: no nasal discharge and no epistaxis Mouth: moist mucous membranes Throat: posterior oropharynx normal and uvula midline Eyes Sclera: normal sclerae Pupils: PERRL Neck Neck: no meningeal signs, trachea midline and no JVD Resp Effort & Inspection: no use of accessory muscles Auscultation: clear to auscultation bilaterally Cardio Rate: tachycardic (Sinus tachycardia in the low 100s, no pulse deficits to the extremities on simultaneous auscultation and palpation of his radial artery) Rhythm: regular rhythm Heart Sounds: no murmurs GI Inspection: non-distended Palpation: soft, no hepatosplenomegaly, no guarding, not rigid and nontender Auscultation: normal bowel sounds Back/Spine/Pelvis Back: no CVA tenderness Skin General: dry skin (warm) Neuro General: alert, awake and oriented x3 Cranial Nerves: CN's II-XI intact bilaterally Speech: speech normal Motor: strength 5/5 throughout, no movement abnormalities noted, no tremors and No asterixis Sensory Exam: no sensory deficits noted Coordination: [id number] test abnormal (The patient had difficulty with finger to nose on the right. The patient had a more coordinated finger to nose on the left.), tandem gait abnormal (Patient has ataxia noted with attempted ambulation.) and abnormal rapid alternating movement LE (Patient has difficulty with heel to ayoub bilaterally.) Extrem General: normal to inspection, no clubbing, no cyanosis and no edema Psych Mood: congruent mood Affect: normal affect Judgment: judgment good Course Reevaluation(s) Reevaluation #1: patient updated and agrees to admit Consultations Consultation #1: dr jennings agrees to admit Initial Documented Vital Signs Temperature 98.9 F 10/29/17 06:18 Pulse Rate 100 H 10/29/17 06:18 Respiratory Rate 20 10/29/17 06:18 Blood Pressure 192/110 H 10/29/17 06:18 Pulse Oximetry 94 L 10/29/17 06:18 Last Documented Vital Signs Temperature 98.9 F 10/29/17 06:18 Pulse Rate 92 H 10/29/17 09:26 Respiratory Rate 24 10/29/17 09:26 Blood Pressure 176/107 H 10/29/17 09:26 Pulse Oximetry 96 10/29/17 09:26 Sign Out Sign Out Data: Patient Sign Out occurred on 10/29/17 at 08:34. Patient's care was discussed, and care was transferred from Zenaida Davies MD to Sherly Stevenson MD. Sign Out Comment: The patient's case was checked out to the oncoming emergency physician at the conclusion of my shift. The patient is pending laboratory studies and imaging studies for ataxia and headache. Last updated by Zenaida Davies MD at 10/29/17 07:25 Post-Handoff Eval: ED workup without emergent process. Will place in observation for further workup of new onset of ataxia NIH Stroke Scale NIHSS Time Completed NIHSS Time Completed: 07:01 NIH Stroke Scale Level of Consciousness: 0-Alert Orientation Questions: 0-Answers both correct Responds to Commands: 0-Both tasks correct Gaze Eye Movement: 0-Horizontal movement WNL Visual Albert: 0-No visual field defect Facial Movement: 0-Normal Motor Functions Arm LEFT: 0-No drift Motor Functions Arm RIGHT: 0-No drift Motor Functions Leg LEFT: 0-No drift Motor Functions Leg RIGHT: 0-No drift Limb Ataxia: 2-Ataxia in two limbs Sensory Loss: 0-No sensory loss Best Language: 0-Normal Articulation: 0-Normal Extinction or Inattention Sensory: 0-Absent Total: 2 Medical Decision Making MDM Narrative Medical decision making narrative: During the course of the patient's emergency department visit, the patient's history, examination, and differential diagnosis were reviewed with the patient. The patient was placed on a monitor worker with oximetry and frequent blood pressure monitoring. The patient had IV access obtained and blood work sent for analysis. Diagnostic testing was started regarding this patient's ataxia, headache, hypertension.The patient had a blood sugar done on arrival it was 112. The patient was initially provided Normal saline at 70 mL/h. The patient was given thiamine 100 mg IV. The patient's case was checked out to the oncoming emergency physician at the conclusion of my shift with laboratory studies and imaging studies pending. Medical Screen Exam Complete: Yes Emergency Medical Condition: Yes Differential Diagnosis Differential Diagnosis: Cerebellar mass, versus cerebellar stroke, versus basilar artery dissection, versus hepatic encephalopathy, versus alcohol intoxication, versus Wernicke's encephalopathy. Medical Records Medical records reviewed: Yes I reviewed the patient's medical records. Lab Data Lab results reviewed: Yes I reviewed the patient's lab results. Result diagrams: 10/29/17 07:00 10/29/17 07:00 Lab Results 10/29/17 10/29/17 10/29/17 Range/Units 07:00 07:00 07:00 WBC 8.4 (4.0-11.0) th/mm3 RBC 4.62 (4.50-5.90) mil/mm3 Hgb 16.3 (13.0-17.0) gm/dL Hct 46.9 (39.0-51.0) % MCV 101.6 H (80.0-100.0) fL MCH 35.2 H (27.0-34.0) pg MCHC 34.7 (32.0-36.0) % RDW 14.5 (11.6-17.2) % Plt Count 149 L (150-450) th/mm3 MPV 8.1 (7.0-11.0) fL Neut % (Auto) 68.6 (16.0-70.0) % Lymph % (Auto) 19.2 (9.0-44.0) % Bleckley % (Auto) 10.2 H (0.0-8.0) % Eos % (Auto) 1.7 (0.0-4.0) % Baso % (Auto) 0.3 (0.0-2.0) % Neut # (Auto) 5.8 (1.8-7.7) th/mm3 Lymph # (Auto) 1.6 (1.0-4.8) th/mm3 Bleckley # (Auto) 0.9 (0.0-0.9) th/mm3 Eos # (Auto) 0.1 (0.0-0.4) th/mm3 Baso # (Auto) 0.0 (0.0-0.2) th/mm3 WBC Differential . Differential Comment Auto diff final PT 10.8 (9.8-11.6) sec INR 1.1 Ratio APTT 28.1 (24.3-30.1) sec Sodium 140 (136-145) meq/L Potassium 3.5 (3.5-5.1) meq/L Chloride 106 (98-107) meq/L Carbon Dioxide 26.7 (21.0-32.0) meq/L Anion Gap 7 (5-15) meq/L BUN 17 (7-18) mg/dL Creatinine 0.90 (0.60-1.30) mg/dL Estimated GFR Greater than 89 (>89) mL/min Random Glucose 103 (74-106) mg/dL Calcium 9.1 (8.5-10.1) mg/dL Total Bilirubin 0.6 (0.2-1.0) mg/dL AST 48 H (15-37) U/L ALT 52 (12-78) U/L Alkaline Phosphatase 96 (45-117) U/L Ammonia (11-32) mcmol/L Total Creatine Kinase 681 H (39-308) U/L CK-MB (CK-2) 8.5 H (0.5-3.6) ng/mL CK-MB (CK-2) % 1.2 (0.0-4.0) % Troponin I Less than 0.02 L (0.02-0.05) ng/mL Total Protein 7.4 (6.4-8.2) g/dL Albumin 3.8 (3.4-5.0) g/dL Serum Alcohol Less than 3 (0-5) mg/dL 10/29/17 Range/Units 07:00 WBC (4.0-11.0) th/mm3 RBC (4.50-5.90) mil/mm3 Hgb (13.0-17.0) gm/dL Hct (39.0-51.0) % MCV (80.0-100.0) fL MCH (27.0-34.0) pg MCHC (32.0-36.0) % RDW (11.6-17.2) % Plt Count (150-450) th/mm3 MPV (7.0-11.0) fL Neut % (Auto) (16.0-70.0) % Lymph % (Auto) (9.0-44.0) % Bleckley % (Auto) (0.0-8.0) % Eos % (Auto) (0.0-4.0) % Baso % (Auto) (0.0-2.0) % Neut # (Auto) (1.8-7.7) th/mm3 Lymph # (Auto) (1.0-4.8) th/mm3 Bleckley # (Auto) (0.0-0.9) th/mm3 Eos # (Auto) (0.0-0.4) th/mm3 Baso # (Auto) (0.0-0.2) th/mm3 WBC Differential Differential Comment PT (9.8-11.6) sec INR Ratio APTT (24.3-30.1) sec Sodium (136-145) meq/L Potassium (3.5-5.1) meq/L Chloride (98-107) meq/L Carbon Dioxide (21.0-32.0) meq/L Anion Gap (5-15) meq/L BUN (7-18) mg/dL Creatinine (0.60-1.30) mg/dL Estimated GFR (>89) mL/min Random Glucose (74-106) mg/dL Calcium (8.5-10.1) mg/dL Total Bilirubin (0.2-1.0) mg/dL AST (15-37) U/L ALT (12-78) U/L Alkaline Phosphatase (45-117) U/L Ammonia 37 H (11-32) mcmol/L Total Creatine Kinase (39-308) U/L CK-MB (CK-2) (0.5-3.6) ng/mL CK-MB (CK-2) % (0.0-4.0) % Troponin I (0.02-0.05) ng/mL Total Protein (6.4-8.2) g/dL Albumin (3.4-5.0) g/dL Serum Alcohol (0-5) mg/dL Imaging Data Attestation: I personally reviewed and interpreted this imaging study as follows : Radiologist's impression: Chest X-Ray 10/29/17 06:51 CONCLUSION: Under inflation with subsegmental atelectasis at the lung bases. Otherwise, no acute finding is identified. Head CT 10/29/17 06:51 CONCLUSION: Stable brain appearance with no acute intracranial findings. . Head CTA 10/29/17 07:01 CONCLUSION: 1. Negative CT angiogram of the head Neck CTA 10/29/17 07:01 CONCLUSION: Negative CTA Carotid. ECG Data Attestation: I personally reviewed and interpreted this ECG as follows: Interpretation: The patient had an EKG done on arrival. The patient's EKG reveals a sinus rhythm heart rate of 95, QRS duration is 99 ms, QTC [address] segment elevation is noted, T waves are inverted in V1. Nonspecific ST -T wave abnormalities are noted. Discharge Plan Discharge Disposition Patient Disposition: 30 Still Patient Discharge Condition Condition: Stable Discharge Details Diagnosis: Ataxia Physicians Team ED Provider: Sherly Stevenson Primary Care Provider: Primary Care ShaunaiViviane Rxs /Orders / Referrals /Forms Prescriptions: No Action No Known Home Medications RF: 0 Discharge Interventions Interventions: Vital Signs Last Done: 10/29/17 09:26 Status ED Status: With Doctor
[2017-10-29 07:20] LABS: Baso % (Auto) 0.3 % (0.0-2.0); Eos # (Auto) 0.1 th/mm3 (0.0-0.4); Eos % (Auto) 1.7 % (0.0-4.0); Hematocrit 46.9 % (39.0-51.0); Hemoglobin 16.3 gm/dL (13.0-17.0); Lymph # (Auto) 1.6 th/mm3 (1.0-4.8); Lymph % (Auto) 19.2 % (9.0-44.0); Mean Corpuscular HGB Conc 34.7 % (32.0-36.0); Mean Corpuscular Hemoglobin 35.2 pg (27.0-34.0); Mean Corpuscular Volume 101.6 fL (80.0-100.0); Mean Platelet Volume 8.1 fL (7.0-11.0); Mono # (Auto) 0.9 th/mm3 (0.0-0.9); Mono % (Auto) 10.2 % (0.0-8.0); Neut # (Auto) 5.8 th/mm3 (1.8-7.7); Neut % (Auto) 68.6 % (16.0-70.0); Platelet Count 149 th/mm3 (150-450); Red Blood Count 4.62 mil/mm3 (4.50-5.90); Red Cell Distribution Width 14.5 % (11.6-17.2); White Blood Count 8.4 th/mm3 (4.0-11.0)
[2017-10-29 07:30] LABS: Activated Partial Thrombo Time 28.1 sec (24.3-30.1); INR 1.1 Ratio; Prothrombin Time 10.8 sec (9.8-11.6)
[2017-10-29 07:39] LABS: Alanine Aminotransferase 52 U/L (12-78); Albumin 3.8 g/dL (3.4-5.0); Anion Gap 7 meq/L (5-15); Aspartate Aminotransferase 48 U/L (15-37); Blood Urea Nitrogen 17 mg/dL (7-18); Calcium 9.1 mg/dL (8.5-10.1); Carbon Dioxide 26.7 meq/L (21.0-32.0); Chloride 106 meq/L (98-107); Glomerular Filtration Rate Greater Than 89 mL/min (>89); Glucose,Random 103 mg/dL (74-106); Potassium 3.5 meq/L (3.5-5.1); Sodium 140 meq/L (136-145)
[2017-10-29 07:44] LABS: Alkaline Phosphatase 96 U/L (45-117); Creatine Kinase 681 U/L (39-308); Total Protein 7.4 g/dL (6.4-8.2)
[2017-10-29 07:56] LABS: CKMB Percent 1.2 % (0.0-4.0); Creatine Kinase MB 8.5 ng/mL (0.5-3.6)
--- NOTE | 2017-10-29 07:57 | XR ---
EXAM DATE: 10/29/2017 7:20 AM EDT AGE/SEX: 47 years / Male INDICATIONS: Weakness and cough. CLINICAL DATA: This is the patient's initial encounter. Patient reports that signs and symptoms have been present for 1 day and indicates a pain score of 0/10. MEDICAL/SURGICAL HISTORY: None. None. COMPARISON: [facility] [place], CHEST SINGLE AP, 07/05/2017. . FINDINGS: Portable AP view of the chest demonstrates a normal-sized cardiac silhouette. Lungs are underinflated with subsegmental atelectasis at the lung bases. Left nipple piercing is present. EKG lines overlie the patient. No effusion or pneumothorax is identified. Bones and soft tissues demonstrate no acute f inding. CONCLUSION: Under inflation with subsegmental atelectasis at the lung bases. Otherwise, no acute finding is ident ified. Electronically signed by: Christian Ro MD 10/29/2017 7:56 AM EDT
--- NOTE | 2017-10-29 08:59 | CT ---
EXAM DATE: 10/29/2017 8:52 AM EDT AGE/SEX: 47 years / Male INDICATIONS: Headache, decreased coordination CLINICAL DATA: This is the patient's initial encounter. Patient reports that signs and symptoms have been present for 1 day and indicates a pain score of 4/10. MEDICAL/SURGICAL HISTORY: Hypertension. Cerebrovascular disease. Cardiovascular disease. None. RADIATION DOSE: 41.11 CTDI (mGy) COMPARISON: [facility] [place]IN [place]/O [place]AST, 07/05/2017. . TECHNIQUE: CT of the head without contrast. Using automated exposure control and adjustment of the mA and/or kV according to patient size, radiation dose was kept as low as reasonably achievable to ob tain optimal diagnostic quality images. DICOM format image data is available electronically for revi ew and comparison. FINDINGS: Cerebrum: The ventricles are normal for age. No evidence of midline shift, mass lesion, hemorrhage or acute infarction. No extraaxial fluid collections are seen. Posterior Fossa: The cerebellum and brainstem are intact. The 4th ventricle is midline. The cerebe llopontine angle is unremarkable. Extracranial: The visualized portion of the orbits is intact. Skull: The calvaria is intact. No evidence of skull fracture. CONCLUSION: Stable brain appearance with no acute intracranial findings. . Electronically signed by: Christian Wahl MD 10/29/2017 8:58 AM EDT
--- NOTE | 2017-10-29 09:40 | CT ---
EXAM DATE: 10/29/2017 9:33 AM EDT AGE/SEX: 47 years / Male INDICATIONS: Headache, decreased coordination CLINICAL DATA: This is the patient's initial encounter. Patient reports that signs and symptoms have been present for 1 day and indicates a pain score of 4/10. MEDICAL/SURGICAL HISTORY: Hypertension. Cerebrovascular disease. Cardiovascular disease. None. RADIATION DOSE: 28.89 CTDI (mGy) ; Combined studies COMPARISON: No prior exams available for comparison. TECHNIQUE: Volumetric scanning was performed using a multi-row detector CT scanner during bolus infu stevie of 73 ml Omnipaque 350 (iohexol) nonionic water-soluble contrast as a cumulative dose for multi ple exams. The data was post processed with a variety of visualization algorithms including full vo lume maximum intensity projection, multi-planar sliding thin slab reformation, curved planar reformat ion, and surface rendering techniques. Using automated exposure control and adjustment of the mA and /or kV according to patient size, radiation dose was kept as low as reasonably achievable to obtain o ptimal diagnostic quality images. DICOM format image data is available electronically for review and comparison. FINDINGS: There is excellent visualization of the major intracranial arteries out to the second-order branch ve ssels. There is no evidence for aneurysm, vessel truncation or stenosis, and no evidence for vascula r malformation. CONCLUSION: 1. Negative CT angiogram of the head Electronically signed by: Godfrey Waters MD 10/29/2017 9:38 AM EDT
--- NOTE | 2017-10-29 10:18 | CT ---
EXAM DATE: 10/29/2017 10:06 AM EDT AGE/SEX: 47 years / Male INDICATIONS: Headache with decreased coordination CLINICAL DATA: This is the patient's initial encounter. Patient reports that signs and symptoms have been present for 1 day and indicates a pain score of 4/10. MEDICAL/SURGICAL HISTORY: Hypertension. Cardiovascular disease. Cerebrovascular disease. None. RADIATION DOSE: 28.89 CTDI (mGy) ; Combined studies COMPARISON: [facility] [place], [place], CT CERVICAL SPINE W/O CONTRAST, 07/05/2017. . TECHNIQUE: Volumetric scanning was performed using a multirow detector CT scanner during bolus infus ion of 73 ml Omnipaque 350 (iohexol) nonionic water-soluble contrast as a cumulative dose for multip le exams. The data was postprocessed with a variety of visualization algorithms including full-volu me maximum intensity projection, multiplanar sliding thin-slab reformation, curved-planar reformation , and surface-rendering techniques. Using automated exposure control and adjustment of the mA and/or kV according to patient size, radiation dose was kept as low as reasonably achievable to obtain opti mal diagnostic quality images. DICOM format image data is available electronically for review and co mparison. Percent stenosis is calculated using the diameter of the stenotic region over the diameter of the nor mal distal internal carotid artery. FINDINGS: Aortic Arch: There is a three-vessel origin of the great vessels from the aorta. No evidence of ost ial narrowing Right Carotid: The common carotid artery is intact. The carotid bulb has a normal configuration wit hout ulceration or narrowing. The internal carotid artery lumen is smooth without stenosis. The ext ernal carotid artery is intact. Left Carotid: The common carotid artery is intact. The carotid bulb has a normal configuration with out ulceration or narrowing. The internal carotid artery lumen is smooth without stenosis. The exte rnal carotid artery is intact. Vertebrals: The vertebral arteries are patent bilaterally, right side dominant. No stenotic lesions are seen. CONCLUSION: Negative CTA Carotid. Electronically signed by: Christian Wahl MD 10/29/2017 10:17 AM EDT
--- NOTE | 2017-10-29 13:15 | P.HPIM ---
History of Present Illness Primary Care Physician: Dr. Seamus Atkinson Chief Complaint: Ataxia History of Present Illness: Mr. Sierra is a 47 y/o WM with hx of left occipital CVA in 2016 s/p TPA, paroxysmal atrial fibrillation, HTN, hyperlipidemia, tobacco abuse and alcohol abuse. He was prescribed Eliquis, Norvasc, Lipitor, ASA and Labetolol following that admission which he is no longer taking any of those medications due to lack of health insurance. He recently obtained health insurance but has not established with his assigned PCP yet. He was taking an aspirin but no longer taking this. Pt presented to the ED at [facility] [place] on 10/29/17 with complaints of headache and ataxia. He states that early this morning he had bent over when putting on his heavy work boots and felt like he had a slight headache after that. Then around an hour or so later when he stood up to walk, he felt off balance and felt like he was not be able to control his limbs in that he was stumbling around the room. He felt like he was more so falling towards the right side. Denies any chest pain, SOB, palpitations, dizziness or sensation of room spinning. No visual changes, no slurred speech or facial drooping. No N/V, fevers, chills. No weakness in his hands or extremities. He did have some issues with coordinated hand movements while he was smoking. Denies any numbness or tingling in his hands or feet. This sensation lasted up until he came to the ED. He now feels like he is at his baseline. In the ED the pt underwent evaluation with CTA head and neck which were negative and CT head was stable brain appearance with no acute intracranial findings. Past Medical Hx: CVA, left occipital lobe in 2016 Paroxysmal atrial fibrillation HTN Hx of alcohol abuse, he had been sober for 4 years but 2 years ago he relapsed and has not been able to stop longer than 30 days since then Hx of incarcerated hernia Tobacco use 2D echo (03/04/16) - Mild LVH - Estimated EF 55-60% - Mild tricuspid regurg - PA peak pressure 38mmHg Past Surgical Hx: Umbilical hernia repair Family Hx: Noncontributory Social Hx: (+)Tobacco use, 1ppd x 30 years (+)Alcohol use, drinking about 1/5 of rum per day, this is more than he normally drinks. - Diagnosis (1) Ataxia (2) History of CVA (cerebrovascular accident) (3) Paroxysmal atrial fibrillation (4) HTN (hypertension) (5) Hyperlipidemia Review of Systems Constitutional: Denies chills, Denies fatigue, Denies lack of energy, Denies malaise Eyes: Denies change in vision, Denies loss of vision Ears, Nose, Mouth, and Throat: Denies dizziness Cardiovascular: Denies chest pain, Denies fast heart rate, Denies rapid, pounding, or irregular heartbeat, Denies shortness of breath, Denies shortness of breath with activity Respiratory: Reports cough, Reports wheezing, Denies shortness of breath Gastrointestinal: Denies abdominal pain, Denies nausea, Denies vomiting Genitourinary: Denies urinary incontinence, Denies urinary urgency Musculoskeletal: Denies numbness, Denies tingling Skin/Breast: Denies rash Neurologic: Reports abnormal walking, Reports headache(s), Reports lack of coordination, Denies confusion, Denies dizziness, Denies localized weakness, Denies loss of vision, Denies numbness, Denies tingling/numbness/burning sensations, Denies tremor(s), Denies weakness PMFSH - History History Provided By: Patient - Medical History Medical History: Medical History (Last Reviewed 10/29/17 @ 11:45 by Vanita Orozco) A-fib ETOHism Hypertension Stroke - Surgical History Surgical History: Surgical History (Last Reviewed 10/29/17 @ 11:45 by Vanita Orozco) H/O hernia repair - Tobacco History Second Hand Smoke Exposure: No Tobacco Use In Past 30 Days: Yes Smoking Status: Current every day smoker Tobacco Type: Cigarettes Packs Per Day: 1 Cigarettes Per Day: 20.0 - Alcohol History How Often Do You Have a Drink Containing Alcohol: 4 or more times a week - Substance Use History Substance History: Active Abuse - Travel History Recent Travel in the [place] Within the Last 8 Weeks: No Recent Travel Out of the Country Within the Last 8 Weeks: No - Immunization History Tetanus Immunization: <5 Years Hx Influenza Vaccine This Season: No Medications and Allergies Allergies Allergy/AdvReac Type Severity Reaction Status Date / Time *MDRO Multi-Drug Resistant AdvReac Unknown Fever Uncoded 10/29/17 06:22 Organism Home Medications Medication Instructions Recorded Confirmed Type No Known Home Medications 10/29/17 10/29/17 History Active Medications: Active Medications Sodium Chloride (Ns Inj) 1,000 mls @ 70 mls/hr IV.CONT .[id number] REGAN Stop: 10/29/17 21:17 Last Admin: 10/29/17 06:58 Dose: 70 mls/hr Sodium Chloride (Ns Flush) 2 ml IV.FLUSH PRN PRN PRN Reason: FLUSH AFTER USING IV ACCESS Exam Vital signs: Vital Signs 10/29/17 06:18 10/29/17 06:31 10/29/17 06:44 Temperature 98.9 F Pulse Rate 100 H 101 H 100 H Respiratory Rate 20 18 18 Blood Pressure 192/110 H 197/126 H 188/112 H Pulse Oximetry 94 L 95 95 10/29/17 09:26 Temperature Pulse Rate 92 H Respiratory Rate 24 Blood Pressure 176/107 H Pulse Oximetry 96 Intake & Output 10/28/17 10/29/17 10/29/17 18:59 06:59 18:59 Weight 99.79 kg Narrative: GENERAL: NAD, AAOx3 SKIN: Warm and dry. HEENT: Atraumatic. Normocephalic. Pupils equal and round. No scleral icterus. No injection or drainage. No nasal bleeding or discharge. Mucous membranes pink and moist. NECK: Trachea midline. No JVD. CARDIO: Regular rate and rhythm. RESP: Expiratory wheezing throughout. ABD: Abdomen soft, non-tender, nondistended. Hepatic and splenic margins not palpable. EXT: Extremities without clubbing, cyanosis, or edema. No obvious deformities. NEURO: Awake and alert. No obvious cranial nerve deficits. Motor grossly within normal limits. Five out of 5 muscle strength in the arms and legs. Normal speech. PSYCHIATRIC: Appropriate mood and affect; insight and judgment normal. Results - Labs CBC & Chem 7: 10/29/17 07:00 10/29/17 07:00 Labs: Short CBC 10/29/17 Range/Units 07:00 WBC 8.4 (4.0-11.0) th/mm3 Hgb 16.3 (13.0-17.0) gm/dL Hct 46.9 (39.0-51.0) % Plt Count 149 L (150-450) th/mm3 BMP 10/29/17 07:00 Sodium 140 Potassium 3.5 Chloride 106 Carbon Dioxide 26.7 BUN 17 Creatinine 0.90 Calcium 9.1 Cardiac Enzymes 10/29/17 Range/Units 07:00 Total Creatine Kinase 681 H (39-308) U/L CK-MB (CK-2) 8.5 H (0.5-3.6) ng/mL Troponin I Less than 0.02 L (0.02-0.05) ng/mL Liver Function 10/29/17 Range/Units 07:00 Total Bilirubin 0.6 (0.2-1.0) mg/dL AST 48 H (15-37) U/L ALT 52 (12-78) U/L Alkaline Phosphatase 96 (45-117) U/L Albumin 3.8 (3.4-5.0) g/dL - Imaging Impressions Chest X-Ray 10/29/17 06:51 CONCLUSION: Under inflation with subsegmental atelectasis at the lung bases. Otherwise, no acute finding is identified. Head CT 10/29/17 06:51 CONCLUSION: Stable brain appearance with no acute intracranial findings. . Head CTA 10/29/17 07:01 CONCLUSION: 1. Negative CT angiogram of the head Neck CTA 10/29/17 07:01 CONCLUSION: Negative CTA Carotid. Caprini VTE Risk Assessment Caprini VTE Risk Assessment: Moderate/High Risk (score >= 2) Caprini Risk Assessment Model: Point Value = 1 Point Value = 2 Point Value = 3 Point Value = 5 Age 41-60 Minor surgery BMI > 25 kg/m2 Swollen legs Varicose veins or History of unexplained or recurrent spontaneous Oral contraceptives or hormone replacement Sepsis (< 1 month) Serious lung disease, including pneumonia (< 1 month) Abnormal pulmonary function Acute myocardial infarction Congestive heart failure (< 1 month) History of inflammatory bowel disease Medical patient at bed rest Age 61-74 Arthroscopic surgery Major open surgery (> 45 min) Laparoscopic surgery (> 45 min) Malignancy Confined to bed (> 72 hours) Immobilizing plaster cast Central venous access Age >= 75 History of VTE Family history of VTE Factor V Leiden Prothrombin [id number] Lupus anticoagulant Anticardiolipin antibodies Elevated serum homocysteine Heparin-induced thrombocytopenia Other congenital or acquired thrombophilia Stroke (< 1 month) Elective arthroplasty Hip, pelvis, or leg fracture Acute spinal cord injury (< 1 month) Prophylaxis Regimen: Total Risk Factor Score Risk Level Prophylaxis Regimen 0-1 Low Early ambulation 2 Moderate Order ONE of the following: *Sequential Compression Device (SCD) *Heparin 5000 units SQ BID 3-4 Higher Order ONE of the following medications: *Heparin 5000 units SQ TID *Enoxaparin/Lovenox 40 mg SQ daily (WT < 150 kg, CrCl > 30 mL/min) *Enoxaparin/Lovenox 30 mg SQ daily (WT < 150 kg, CrCl > 10-29 mL/min) *Enoxaparin/Lovenox 30 mg SQ BID (WT < 150 kg, CrCl > 30 mL/min) AND/OR *Sequential Compression Device (SCD) 5 or more Highest Order ONE of the following medications: *Heparin 5000 units SQ TID (Preferred with Epidurals) *Enoxaparin/Lovenox 40 mg SQ daily (WT < 150 kg, CrCl > 30 mL/min) *Enoxaparin/Lovenox 30 mg SQ daily (WT < 150 kg, CrCl > 10-29 mL/min) *Enoxaparin/Lovenox 30 mg SQ BID (WT < 150 kg, CrCl > 30 mL/min) AND *Sequential Compression Device (SCD) Assessment and Plan - Assessment (1) Ataxia Code(s): R27.0 - Ataxia, unspecified Status: Acute Plan: Ataxia Hx of CVA - Pt is a 47 y/o WM with hx of left occipital CVA in 2016 s/p TPA, paroxysmal atrial fibrillation, HTN, hyperlipidemia, tobacco abuse and alcohol abuse. He was prescribed Eliquis, Norvasc, Lipitor, ASA and Labetalol following that admission which he is no longer taking any of those medications due to lack of health insurance. He recently obtained health insurance but has not established with his assigned PCP yet. He was taking an aspirin but no longer taking this. - Pt presented to the ED at [facility] [place] on 10/29/17 with complaints of headache and ataxia that began early this morning. This sensation lasted up until he came to the ED. He now feels like he is at his baseline. - In the ED the pt underwent evaluation with CTA head and neck which were negative - CT head was stable brain appearance with no acute intracranial findings. - Check MRI Brain - Telemetry - Cont. IVF - ASA today and daily - PT evaluation - Check Hgb A1C and Lipid panel in AM - If MRI is negative for any acute stroke, then we will place the pt on BP medication - Vasotec PRN - Supportive care - DVT prophylaxis with SCDs HTN - Pt has been on medications for some time due to lack of health insurance - If MRI is negative, will start antihypertensives Hyperlipidemia - Check lipid panel in AM Paroxysmal atrial fibrillation - Telemetry Alcohol abuse - CIOK protocol - Discussed alcohol cessation Tobacco abuse - Nicotine patch The exam, history, and the medical decision-making described in the above note were completed with the assistance of the mid-level provider. I reviewed and agree with the findings presented. I attest that I had a [id number] encounter with the patient on the same day, and personally performed and documented my assessment and findings in the medical record. pt gives hx of prior cva and tpa. hx pafib in past. on no medications. describes being very off balance this AM and worried about another stroke. w/up so far in ED with ekg and cta negative for afib or cva. mri pending. pt wheezing and with tob hx likely has undiagnosed copd. check pft and send home with neb/inhalers. also he has recurrent etoh use after cessation previously. likely dc home in AM. (2) History of CVA (cerebrovascular accident) Code(s): Z86.73 - Personal history of transient ischemic attack (TIA), and cerebral infarction without residual deficits Status: Acute (3) Paroxysmal atrial fibrillation Code(s): I48.0 - Paroxysmal atrial fibrillation Status: Acute (4) HTN (hypertension) Code(s): I10 - Essential (primary) hypertension Status: Acute (5) Hyperlipidemia Code(s): E78.5 - Hyperlipidemia, unspecified Status: Acute
[2017-10-29] MEDS ORDERED: Acetaminophen 325 MG Tablet PO PRN (13:17)
[2017-10-29] MEDS ORDERED: Haloperidol Inj 5 MG/ML Ampul IV.PUSH PRN (14:02)
[2017-10-29] MEDS ORDERED: LORazepam 1 MG Tablet PO PRN (14:02)
[2017-10-29] MEDS ORDERED: Gadobutrol PF 10 MMOL/10 ML Vial (for RAD) IV.SIG ONE (17:30)
--- NOTE | 2017-10-29 17:40 | MR ---
EXAM DATE: 10/29/2017 5:32 PM EDT AGE/SEX: 47 years / Male INDICATIONS: . Abnormal gait. CLINICAL DATA: This is the patient's subsequent encounter. Patient reports that signs and symptoms h ave been present for 1 day and indicates a pain score of 0/10. MEDICAL/SURGICAL HISTORY: Cerebrovascular disease. Hypertension. Afib. Umbilical hernia repai r. [place] [facility] [place]2016. . TECHNIQUE: Multiplanar, multisequence examination of the brain was performed without and with 10 ml G adavist (gadobutrol) contrast as a single exam dose. FINDINGS: There is a late subacute age small infarction involving the upper medial aspect of the right cerebell um. There is a small central area of susceptibility which may reflect some minimal associated hemorrh age. The brain is elsewhere symmetric and unremarkable. There is no evidence of brain mass or mass ef fect. Ventricles are symmetric and normal. The extracranial structures are benign and intact. CONCLUSION: Small focus of late subacute infarction involving the upper medial aspect of the right cerebellar hem isphere. Small focus of internal petechial hemorrhage Electronically signed by: Christian Wahl MD 10/29/2017 5:39 PM EDT
[2017-10-29] MEDS: Sod Chloride 0.9% Inj 1,000 ML IV.CONT SCH (17:55)
--- NOTE | 2017-10-29 21:36 | ECG ---
Date Performed: 10/29/2017 Time Performed: 06:37:17 PTAGE: 47 years EKG: Sinus rhythm INCOMPLETE RIGHT BUNDLE BRANCH BLOCK LEFT ANTERIOR FASCICULAR BLOCK PROBABLE INFERIOR MYOCARDIAL INF ARCTION ABNORMAL ECG Since the PREVIOUS TRACING , no significant change noted DOCTOR: Javed Joaquin Interpretating Date/Time 10/29/2017 21:36:04
[2017-10-30] MEDS: Sod Chloride 0.9% Inj 1,000 ML IV.CONT SCH (05:38)
--- NOTE | 2017-10-30 08:48 | P.PNIM ---
Subjective Interval history: Pt is ambulating without difficulty He did not sleep well last night but otherwise with no new complaints Tolerating oral intake without difficulty No headache No vision changes, no coordination difficulties His BP is running high Wheezing is improved with Duonebs Physical Exam Vital signs: Vital Signs 10/29/17 09:26 10/29/17 13:57 10/29/17 15:15 Temperature Pulse Rate 92 H 73 73 Respiratory Rate 24 24 24 Blood Pressure 176/107 H 175/120 H Pulse Oximetry 96 10/29/17 17:57 10/29/17 19:26 10/29/17 20:00 Temperature 98.8 F Pulse Rate 86 79 Respiratory Rate 22 18 18 Blood Pressure 144/102 H 161/102 H Pulse Oximetry 100 97 10/29/17 20:36 10/30/17 00:50 10/30/17 05:25 Temperature 96.8 F L 97.2 F L Pulse Rate 79 78 81 Respiratory Rate 18 22 20 Blood Pressure 175/105 H 154/101 H Pulse Oximetry 96 96 10/30/17 07:58 Temperature Pulse Rate 75 Respiratory Rate 18 Blood Pressure Pulse Oximetry Intake & Output 10/29/17 10/30/17 10/30/17 18:59 06:59 18:59 Intake Total 101 / 101 1000 / 1000 Balance 101 / 101 1000 / 1000 Weight 99.8 kg Intake: IV 101 / 101 1000 / 1000 NS Inj 1,000 ML @ 70 mls/hr IV. 1000 / 1000 CONT .[id number] [facility] Rx#:[id number] Other: Weight On Admission 99.79 kg Narrative: General: NAD, AAOx3 Chest: CTA bilaterally Cardiac: Regular Abd: +BS, soft ND/NT Ext: No edema Results - Labs CBC & Chem 7: 10/29/17 07:00 10/29/17 07:00 Laboratory Results - last 24 hr 10/29/17 07:00 Vitamin B12 390 - Imaging Impressions Head MRI 10/29/17 00:00 CONCLUSION: Small focus of late subacute infarction involving the upper medial aspect of the right cerebellar hemisphere. Small focus of internal petechial hemorrhage Head CT 10/29/17 06:51 CONCLUSION: Stable brain appearance with no acute intracranial findings. . Head CTA 10/29/17 07:01 CONCLUSION: 1. Negative CT angiogram of the head Neck CTA 10/29/17 07:01 CONCLUSION: Negative CTA Carotid. Assessment and Plan - Assessment (1) Ataxia Code(s): R27.0 - Ataxia, unspecified Status: Acute Plan: Subacute CVA Ataxia - Pt is a 47 y/o WM with hx of left occipital CVA in 2016 s/p TPA, paroxysmal atrial fibrillation, HTN, hyperlipidemia, tobacco abuse and alcohol abuse. He was prescribed Eliquis, Norvasc, Lipitor, ASA and Labetalol following that admission which he is no longer taking any of those medications due to lack of health insurance. He recently obtained health insurance but has not established with his assigned PCP yet. He was taking an aspirin but no longer taking this. - Pt presented to the ED at [facility] [place] on 10/29/17 with complaints of headache and ataxia that began early this morning. This sensation lasted up until he came to the ED. He now feels like he is at his baseline. - In the ED the pt underwent evaluation with CTA head and neck which were negative - CT head was stable brain appearance with no acute intracranial findings. - MRI Brain (10/29/17) --> Small focus of late subacute infarction involving the upper medial aspect of the right cerebellar hemisphere. Small focus of internal petechial hemorrhage - Telemetry was never placed on the pt last night. Discussed with nursing staff this morning. - Stop IVF - Neurology consulted - Cont. ASA for now, await Neurology recommendations regarding anticoagulants - Pt did well with PT yesterday. No recommendations for continued PT - Awaiting Hgb A1C and Lipid panel this AM - Vasotec PRN - Supportive care - DVT prophylaxis with SCDs HTN - Pt has been on medications for some time due to lack of health insurance - Start Procardia XL 30mg po daily and monitor BP this morning. Hyperlipidemia - Awaiting lipid panel Paroxysmal atrial fibrillation - Telemetry Wheezing, possible COPD - Bedside PFTs ordered - Wheezing improved with Duonebs Q4H Alcohol abuse - CIWA protocol - Discussed alcohol cessation Tobacco abuse - Nicotine patch The exam, history, and the medical decision-making described in the above note were completed with the assistance of the mid-level provider. I reviewed and agree with the findings presented. I attest that I had a pluw-sc-chrl encounter with the patient on the same day, and personally performed and documented my assessment and findings in the medical record. subacute cerebellar cva. ataxia better. bp control ordered. pft pending. likely copd. prescribe inhaler. await neuro eval. dc home if ok with neuro and f/u . pending holter and echo. will call his new pcp upon dc. (2) History of CVA (cerebrovascular accident) Code(s): Z86.73 - Personal history of transient ischemic attack (TIA), and cerebral infarction without residual deficits Status: Acute (3) Paroxysmal atrial fibrillation Code(s): I48.0 - Paroxysmal atrial fibrillation Status: Acute (4) HTN (hypertension) Code(s): I10 - Essential (primary) hypertension Status: Acute (5) Hyperlipidemia Code(s): E78.5 - Hyperlipidemia, unspecified Status: Acute
[2017-10-30 12:42] LABS: Chol/HDL Ratio 3.12 Ratio; HDL Cholesterol 50.6 mg/dL (40.0-60.0)
[2017-10-30 16:37] LABS: Hemoglobin A1c 5.9 % (4.3-6.0)
--- NOTE | 2017-10-30 20:59 | MB ---
cc: Piotr Andres MD, PhD DATE: 10/30/2017 REASON FOR CONSULTATION: Stroke. HISTORY OF PRESENT ILLNESS: Mr. Sierra is a very nice 47-year-old man who has a history of atrial fibrillation in the past and previous stroke in the past. He was in his usual state of health until yesterday morning around 5 a.m. or so. He got up and suddenly he started having significant difficulty with his walking with an unsteady gait and dizziness. He presented to the emergency room. He had no focal weakness or numbness. He feels better today, back to his baseline state. He states he has been walking around, doing well, has no dizziness. He states he would like to go home. PAST MEDICAL HISTORY: He has a history of atrial fibrillation in the distant past. He states he has not had atrial fibrillation for at least 5 or 6 years. He has a history of previous stroke. He has a history of hyperlipidemia, hypertension, history of incarcerated hernia, alcohol abuse. MEDICATIONS: Currently in the hospital: 1. Tylenol. 2. DuoNeb. 3. Aspirin 325 mcg daily. 4. Vasotec. P.r.n. 5. p.r.n. 5. Haldol p.r.n. 6. Ativan p.r.n. EXAMINATION: Blood pressure 141/95, pulse is 80, respiratory rate is 18, temperature 98 degrees. Higher cortical functions are normal. Cranial nerves are intact. Motor exam normal strength and tone of all groups. There is no drift. Reflexes are symmetric. On serial testing, he has minimal dysmetria of the right upper extremity, reflexes are symmetric. Gait is normal. RADIOGRAPH STUDIES: MRI of the brain is reviewed. It shows a small infarction in the superior aspect of the right cerebellum with a small amount of petechial hemorrhage. Neck CTA is normal. A head CTA is normal. Head CT: No acute change present. LABORATORY DATA: White count 8400, hemoglobin 16.3, hematocrit 46.9%, platelet count 149,000. PT 10.8, INR 1.1, aPTT 28.1. Sodium is 140, potassium 3.5, chloride 106, CO2 26.7, BUN 17, creatinine 0.9, GFR is greater than 89, glucose 103, LDL 70, cholesterol 158, triglycerides 185, HDL 50.6. His EKG, telemetry is normal sinus rhythm. IMPRESSION: Right cerebellar stroke with a small amount of hemorrhage. Presently, he is in normal sinus rhythm. He states he has not been in atrial fibrillation for a number of years. Therefore, recommend aspirin 325 mg daily for now. Would recommend cardiology evaluation as an outpatient for long-term athletic monitor to be sure there is no atrial fibrillation. Recommend repeating an MRI of the brain in several weeks to assess the hemorrhage, to be sure that hemorrhage is resolving. I did recommend the patient not return to work for at least a week for recovery. The patient is stable neurologically at the present time for discharge. He will follow up with me in 2 weeks. Piotr Andres MD, PhD SARTHAK/ct , 06:00 PM , 06:09 PM
--- NOTE | 2017-10-31 15:22 | ECHRPT ---
Indication: CONCLUSIONS Normal left ventricular size and wall thickness. The left ventricular systolic function is normal wi th an estimated ejection fraction in the range of 60-65%. Left ventricular diastolic function parameters a re normal. BP: / HR: 87 Rhythm: Sinus MEASUREMENTS (Male / Female) Normal Values Technical Quality:Fair 2D ECHO LV Diastolic Diameter PLAX 4.4 cm 4.2 - 5.9 / 3.9 - 5.3 cm LV Systolic Diameter PLAX 3.3 cm IVS Diastolic Thickness 1.1 cm 0.6 - 1.0 / 0.6 - 0.9 cm LVPW Diastolic Thickness 1.0 cm 0.6 - 1.0 / 0.6 - 0.9 cm LV Relative Wall Thickness 0.5 LVOT Diameter 2.0 cm M-MODE Aortic Root Diameter MM 2.5 cm LA Systolic Diameter MM 3.5 cm LA Ao Ratio MM 1.4 AV Cusp Separation MM 1.8 cm DOPPLER AV Peak Velocity 144.0 cm/s AV Peak Gradient 8.3 mmHg LVOT Peak Velocity 108.0 cm/s LVOT Peak Gradient 4.7 mmHg AV Area Cont Eq pk 2.4 cm Mitral E Point Velocity 89.3 cm/s Mitral A Point Velocity 67.1 cm/s Mitral E to A Ratio 1.3 LV E' Lateral Velocity 11.9 cm/s Mitral E to LV E' Lateral Ratio 7.5 LV E' Septal Velocity 10.8 cm/s Mitral E to LV E' Septal Ratio 8.3 PV Peak Velocity 147.0 cm/s PV Peak Gradient 8.6 mmHg FINDINGS LEFT VENTRICLE Normal left ventricular size and wall thickness. The left ventricular systolic function is normal wi th an estimated ejection fraction in the range of 60-65%. Left ventricular diastolic function parameters a re normal. The left ventricle is not well visualized. RIGHT VENTRICLE Normal right ventricular size and systolic function. LEFT ATRIUM The left atrial size is normal. RIGHT ATRIUM The right atrial size is normal. ATRIAL SEPTUM Normal atrial septal thickness without atrial level shunting by limited color doppler interrogation. AORTA The aortic root and proximal ascending aorta are normal in size on limited imaging. MITRAL VALVE Structurally normal mitral valve. No mitral valve stenosis or regurgitation. AORTIC VALVE Trileaflet aortic valve. No aortic valve stenosis or regurgitation. TRICUSPID VALVE Structurally normal tricuspid valve. No tricuspid valve stenosis or regurgitation. PULMONARY VALVE The pulmonary valve is not well visualized. VESSELS The inferior vena cava is normal in size. PERICARDIUM No pericardial effusion. Keanu Waite MD, FACC Edited by: hadoop administrator hadoop administrator (Electronically Signed) Final Date:31 October 2017 07:49 Amended: 31 October 2017 15:20
== END 2017-10-30 18:48 | disposition home or self-care (01) ==
LOC: NEPE 06:10 → NEDA 06:10 → NEPFCDU 18:53
PROVIDERS: ADMIT Hospitalist; ATTEND Hospitalist
DX: F10.20 Alcohol dependence, uncomplicated; R05 Cough; R55 Syncope and collapse; I48.0 Paroxysmal atrial fibrillation; E78.5 Hyperlipidemia, unspecified; R51 Headache; I07.1 Rheumatic tricuspid insufficiency; F17.210 Nicotine dependence, cigarettes, uncomplicated; Z16.24 Resistance to multiple antibiotics; I10 Essential (primary) hypertension; Z86.73 Personal history of transient ischemic attack (TIA), and cerebral infarction without residual deficits